=== PATIENT | female | born 1935 | race Caucasian/White ===

== ENCOUNTER 2017-09-29 17:54 | Emergency (ER) | payer MEDICARE, BC ==
[~2017-09-29] VITALS: Ht 157.5 cm; Wt 52.2 kg
[2017-09-29] MEDS ORDERED: LEVSOD50 PO (18:13)
[2017-09-29] MEDS ORDERED: Pepcid20 MG PO (19:26)
== END 2017-09-29 19:57 | disposition home or self-care (01) ==
LOC: ER 17:54
DX: T18.128A Food in esophagus causing other injury, initial encounter (principal); K44.9 Diaphragmatic hernia without obstruction or gangrene; Z88.0 Allergy status to penicillin; Z88.8 Allergy status to other drugs, medicaments and biological substances; Z79.899 Other long term (current) drug therapy; Z87.891 Personal history of nicotine dependence
CPT/HCPCS: 99282